=== PATIENT | male | born 1965 | race Hispanic/Latino ===

== ENCOUNTER 2018-06-27 18:21 | Emergency (ER) | payer OTHER ==
[2018-06-27 19:10] LABS: APPEARANCE,URINE Clear (CLEAR); BILIRUBIN,URINE Negative (NEGATIVE); COLOR,URINE Yellow (YELLOW); GLUCOSE, URINE (UA) Negative (NEGATIVE); KETONES,URINE Negative (NEGATIVE); LEUKOCYTE ESTERASE ,URINE Negative (NEGATIVE); NITRATE,URINE Negative (NEGATIVE); OCCULT BLOOD,URINE Negative (NEGATIVE); PH,URINE 6.5 (5.0-8.0); PROTEIN,URINE Negative (NEGATIVE); UROBILINOGEN,URINE 0.2 mg/dL (0.2-1.0)
[2018-06-27 19:26] LABS: BASOPHILS % (AUTO) 0.8 % (0.0-5.0); EOSINOPHILS % (AUTO) 4.5 % (0.0-8.0); HEMATOCRIT 41.3 % (42-54); LYMPHOCYTES % (AUTO) 26.1 % (21.0-51.0); MEAN CORPUSCULAR HEMOGLOBIN 31.7 pg (27.0-33.0); MEAN CORPUSCULAR HGB CONC 33.4 g/dL (32.0-36.0); MEAN CORPUSCULAR VOLUME 94.9 fL (79-99); MONOCYTES % (AUTO) 7.3 % (3.0-13.0); NEUTROPHILS % (AUTO) 61.3 % (40.0-77.0); PLATELET COUNT (AUTO) 327 K/uL (130-400); RED BLOOD CELL COUNT(AUTO) 4.36 MIL/uL (4.50-6.20); RED CELL DISTRIBUTION WIDTH 13.4 % (11.0-15.5); WHITE BLOOD COUNT (AUTO) 8.6 K/uL (4.8-10.8)
[2018-06-27 19:36] LABS: CREATININE 1.1 mg/dL (0.5-1.5)
[2018-06-27 19:38] LABS: INR 0.98 (0.85-1.15); PARTIAL THROMBOPLASTIN TIME 27.4 SEC (26.3-35.5); PROTHROMBIN TIME 10.3 SEC (9.6-11.6)
[2018-06-27 19:49] LABS: ALBUMIN 3.7 g/dL (3.5-5.0); BILIRUBIN,TOTAL 0.3 mg/dL (0.2-1.0); TOTAL PROTEIN, SERUM 7.7 g/dL (6.0-8.3)
[2018-06-27] MEDS ORDERED: TRAMADOL HCL 50 MG TABLET ONE (20:32)
== END 2018-06-27 22:29 | disposition home or self-care (01) ==
LOC: EDH 18:21
DX: R10.9 Unspecified abdominal pain (principal); R07.1 Chest pain on breathing; W11.XXXA Fall on and from ladder, initial encounter; Y93.89 Activity, other specified; Y92.89 Other specified places as the place of occurrence of the external cause; Y99.8 Other external cause status
CPT/HCPCS: 36415; 71101; 74177; 80053; 81003; 82150; 82550; 83690; 84484; 85025; 85610; 85730; 93005

== ENCOUNTER 2019-02-05 04:17 | Emergency (ER) | payer OTHER ==
[2019-02-05 04:55] LABS: BASOPHILS % (AUTO) 0.5 % (0.0-5.0); EOSINOPHILS % (AUTO) 4.2 % (0.0-8.0); HEMATOCRIT 41.3 % (42-54); LYMPHOCYTES % (AUTO) 21.5 % (21.0-51.0); MEAN CORPUSCULAR HEMOGLOBIN 32.4 pg (27.0-33.0); MEAN CORPUSCULAR HGB CONC 33.7 g/dL (32.0-36.0); MEAN CORPUSCULAR VOLUME 96.3 fL (79-99); MONOCYTES % (AUTO) 6.7 % (3.0-13.0); NEUTROPHILS % (AUTO) 67.1 % (40.0-77.0); PLATELET COUNT (AUTO) 289 K/uL (130-400); RED BLOOD CELL COUNT(AUTO) 4.28 MIL/uL (4.50-6.20); RED CELL DISTRIBUTION WIDTH 13.4 % (11.0-15.5); WHITE BLOOD COUNT (AUTO) 8.8 K/uL (4.8-10.8)
[2019-02-05 05:03] LABS: CREATININE 1.3 mg/dL (0.5-1.5); POTASSIUM 4.1 mmol/L (3.5-5.1)
[2019-02-05 05:08] LABS: ALBUMIN 3.8 g/dL (3.5-5.0); BILIRUBIN,TOTAL 0.3 mg/dL (0.2-1.0); INR 0.98 (0.85-1.15); PARTIAL THROMBOPLASTIN TIME 26.1 SEC (26.3-35.5); PROTHROMBIN TIME 10.3 SEC (9.6-11.6); TOTAL PROTEIN, SERUM 7.8 g/dL (6.0-8.3)
== END 2019-02-05 06:28 ==
LOC: EDH 04:17
DX: S02.2XXA Fracture of nasal bones, initial encounter for closed fracture (principal); S62.336A Displaced fracture of neck of fifth metacarpal bone, right hand, initial encounter for closed fracture; S01.21XA Laceration without foreign body of nose, initial encounter; S61.411A Laceration without foreign body of right hand, initial encounter; M79.602 Pain in left arm; Z72.0 Tobacco use; R79.1 Abnormal coagulation profile; Y04.2XXA Assault by strike against or bumped into by another person, initial encounter; Y93.89 Activity, other specified; Y92.098 Other place in other non-institutional residence as the place of occurrence of the external cause; Y99.8 Other external cause status
CPT/HCPCS: 29125; 36415; 70450; 70486; 73130; 80053; 85025; 85610; 85730

== ENCOUNTER 2020-04-24 15:11 | Inpatient (IN) | payer SELFPAY ==
[~2020-04-24] VITALS: Ht 160 cm; Wt 31.1 kg
[2020-04-24] MEDS ORDERED: MORPHINE SULFATE 4 MG/1ML SYG ONE (15:30)
[2020-04-24] MEDS ORDERED: ONDANSETRON HCL 4 MG/2 ML VIAL ONE ×2 (15:30→23:09)
[2020-04-24 15:38] LABS: BASOPHILS % (AUTO) 0.3 % (0.0-5.0); EOSINOPHILS % (AUTO) 0.4 % (0.0-8.0); HEMATOCRIT 43.7 % (42-54); LYMPHOCYTES % (AUTO) 11.3 % (21.0-51.0); MEAN CORPUSCULAR HEMOGLOBIN 31.9 pg (27.0-33.0); MEAN CORPUSCULAR VOLUME 96.7 fL (79-99); MONOCYTES % (AUTO) 4.3 % (3.0-13.0); NEUTROPHILS % (AUTO) 83.3 % (40.0-77.0); PLATELET COUNT (AUTO) 376 K/uL (130-400); RED BLOOD CELL COUNT(AUTO) 4.52 MIL/uL (4.50-6.20); RED CELL DISTRIBUTION WIDTH 12.6 % (11.0-15.5)
[2020-04-24 15:49] LABS: CREATININE 1.3 mg/dL (0.5-1.5); POTASSIUM 4.1 mmol/L (3.5-5.1); PROTHROMBIN TIME 10.8 SEC (9.6-11.6)
[2020-04-24 15:53] LABS: ALBUMIN 3.2 g/dL (3.5-5.0); BILIRUBIN,TOTAL 0.2 mg/dL (0.2-1.0); TOTAL PROTEIN, SERUM 7.3 g/dL (6.0-8.3)
[2020-04-24 16:01] LABS: PARTIAL THROMBOPLASTIN TIME 25.6 SEC (26.3-35.5)
[2020-04-24] MEDS ORDERED: METRONIDAZOLE 500MG/100ML BAG 100 ML ONE (16:13)
[2020-04-24] MEDS ORDERED: HYDROMORPHONE HCL 0.5 MG/0.5 ML ML ONE (16:19)
[2020-04-24] MEDS ORDERED: ZOSYN 3.375GM+NS 50ML 50 ML IV ONE (16:34)
[2020-04-24] MEDS ORDERED: HYDROMORPHONE 1 MG/1 ML AMP ONE ×2 (16:55→17:39)
[2020-04-24] MEDS ORDERED: SODIUM CHLORIDE 0.9% 1000ML 1,000 ML IV ONE (17:09)
[2020-04-24] MEDS ORDERED: VANCOMYCIN PROTOCOL PER PHARMACY IV SCH (17:30)
[2020-04-24] MEDS ORDERED: PROPOFOL 10 MG/ML 20ML VIAL IV ONE (17:53)
[2020-04-24] MEDS ORDERED: MIDAZOLAM HCL 1 MG/ML 2ML VIAL ONE (18:07)
[2020-04-24] MEDS ORDERED: FENTANYL CITRATE PF 50 MCG/1 ML 2ML VIAL ONE ×2 (18:07→22:54)
[2020-04-24] MEDS ORDERED: VANCOMYCIN 1GM+NS 250ML 250 ML IV ONE (19:24)
[2020-04-24] MEDS ORDERED: MORPHINE SULFATE 2 MG/ML 1ML SYG ONE (20:57)
[2020-04-24] MEDS: VANCOMYCIN 1GM+NS 250ML 250 ML IV SCH (21:00)
[2020-04-24] MEDS: FAMOTIDINE/PF 20 MG/2 ML VIAL IV SCH (21:00)
[2020-04-24] MEDS: ZOSYN 3.375GM+NS 50ML 50 ML IV SCH (21:00)
[2020-04-24] MEDS: METRONIDAZOLE 500MG/100ML BAG 100 ML IVPB SCH ×2 (22:00→22:52)
[2020-04-24] MEDS ORDERED: CEFAZOLIN SODIUM 1 GM VIAL ONE (22:57)
[2020-04-24] MEDS ORDERED: PHENYLEPHRINE HCL 10 MG/ML 1ML VIAL IV ONE (23:29)
[2020-04-24] MEDS ORDERED: MEPERIDINE-PF 25 MG/ML SYG ONE (23:48)
[2020-04-24] MEDS ORDERED: KETOROLAC TROMETHAMINE 30MG/ML ONE (23:57)
[2020-04-25] VITALS (24 sets, daily range): BP systolic 97–120; BP diastolic 43–84
--- NOTE | 2020-04-25 00:25 | NUR ---
PT HERE FROM PACU
[2020-04-25] MEDS: LACTATED RINGERS 1000ML 1,000 ML IV SCH ×4 (00:53→14:12)
--- NOTE | 2020-04-25 01:04 | NUR ---
CALLED DR OBREIN PHYSICIAN ON-CALL, GAVE UPDATE ON PT STATUS, LAST SET OF VITALS, IVF, AND PAIN REGIMEN, PER PHYSICIAN NO NEW ORDERS
[2020-04-25 03:23] LABS: BASOPHILS % (AUTO) 0.6 % (0.0-5.0); EOSINOPHILS % (AUTO) 0.3 % (0.0-8.0); HEMATOCRIT 38.4 % (42-54); LYMPHOCYTES % (AUTO) 5.3 % (21.0-51.0); MEAN CORPUSCULAR HGB CONC 33.3 g/dL (32.0-36.0); MONOCYTES % (AUTO) 2.1 % (3.0-13.0); NEUTROPHILS % (AUTO) 91.5 % (40.0-77.0); PLATELET COUNT (AUTO) 302 K/uL (130-400); RED CELL DISTRIBUTION WIDTH 12.8 % (11.0-15.5); WHITE BLOOD COUNT (AUTO) 9.9 K/uL (4.8-10.8)
[2020-04-25 03:36] LABS: ALBUMIN 2.3 g/dL (3.5-5.0); BILIRUBIN,TOTAL 0.4 mg/dL (0.2-1.0); CREATININE 1.2 mg/dL (0.5-1.5); CRP QUANTITATIVE 96.6 mg/L (0.00-9.0); POTASSIUM 4.3 mmol/L (3.5-5.1); TOTAL PROTEIN, SERUM 5.5 g/dL (6.0-8.3)
[2020-04-25] MEDS: METRONIDAZOLE 500MG/100ML BAG 100 ML IVPB SCH ×3 (06:13→19:51)
[2020-04-25] MEDS: ZOSYN 3.375GM+NS 50ML 50 ML IV SCH ×3 (06:13→19:50)
[2020-04-25] MEDS: FAMOTIDINE/PF 20 MG/2 ML VIAL IV SCH ×2 (10:06→19:50)
[2020-04-25] MEDS: MORPHINE SULFATE 2 MG/ML 1ML SYG IV PRN ×4 (10:07→23:44)
[2020-04-25] MEDS: VANCOMYCIN 1GM+NS 250ML 250 ML IV SCH ×2 (10:07→19:51)
--- NOTE | 2020-04-25 11:47 | NUR ---
DC PLAN VISITED WITH PATIENT. PATIENT LIVES WITH PARENTS. INDEPENDENT ABLE TO PERFORM ADL'S. PATIENT HAS NO SERVICES OR DME'S. FEELS SAFE TO RETURN HOME. Addendum: 04/25/20 at 1148 by CHARY SCHULTZ RN CM Amended: Links added.
--- NOTE | 2020-04-25 15:30 | NUR ---
TRANSFER REPORT Report phoned to RORY Brito, nurse receiving pt in room 431. Pt aware of transfer.
--- NOTE | 2020-04-25 15:45 | NUR ---
TRANSFER Transferred by bed to room 431.
[2020-04-25] MEDS ORDERED: POTASSIUM CHLORIDE 20MEQ/100ML 100 ML IV PRN ×2 (18:30)
[2020-04-25] MEDS: HEPARIN SODIUM 5000UNIT/ML 1ML VIAL SQ SCH (19:37)
--- NOTE | 2020-04-25 23:22 | NUR ---
i gave patient his morphine 2mg at 2322, however his iv on the right forearm was infiltrated. patient still verbalizes severe pain on his abdomen. i placed another iv catheter and will give morphine on that catheter.
[2020-04-26] VITALS (7 sets, daily range): BP systolic 105–165; BP diastolic 67–91
--- NOTE | 2020-04-26 02:14 | NUR ---
paged steve candelaria for patient's fever and abdominal pain. pending call back
--- NOTE | 2020-04-26 02:21 | NUR ---
steve candelaria ordered tynelol for fever and morphine 4 mg for severe pain
[2020-04-26] MEDS ORDERED: ACETAMINOPHEN 325 MG TAB ONE (02:22)
[2020-04-26] MEDS: LACTATED RINGERS 1000ML 1,000 ML IV SCH ×2 (02:27→19:46)
[2020-04-26] MEDS ORDERED: ACETAMINOPHEN 325 MG TAB PO PRN (02:30)
[2020-04-26] MEDS: ZOSYN 3.375GM+NS 50ML 50 ML IV SCH ×3 (03:28→19:43)
[2020-04-26] MEDS: METRONIDAZOLE 500MG/100ML BAG 100 ML IVPB SCH ×3 (05:20→22:03)
[2020-04-26] MEDS: HEPARIN SODIUM 5000UNIT/ML 1ML VIAL SQ SCH (05:20)
--- NOTE | 2020-04-26 06:02 | NUR ---
colostomy output is 10 ml of sanguineous fluid
[2020-04-26 06:24] LABS: BASOPHILS % (AUTO) 0.2 % (0.0-5.0); EOSINOPHILS % (AUTO) 0.1 % (0.0-8.0); HEMATOCRIT 34.5 % (42-54); LYMPHOCYTES % (AUTO) 5.6 % (21.0-51.0); MEAN CORPUSCULAR HGB CONC 33.6 g/dL (32.0-36.0); MONOCYTES % (AUTO) 2.1 % (3.0-13.0); NEUTROPHILS % (AUTO) 90.7 % (40.0-77.0); PLATELET COUNT (AUTO) 289 K/uL (130-400); RED BLOOD CELL COUNT(AUTO) 3.63 MIL/uL (4.50-6.20); RED CELL DISTRIBUTION WIDTH 12.9 % (11.0-15.5); WHITE BLOOD COUNT (AUTO) 15.7 K/uL (4.8-10.8)
[2020-04-26 06:36] LABS: BILIRUBIN,TOTAL 0.3 mg/dL (0.2-1.0); POTASSIUM 3.7 mmol/L (3.5-5.1); TOTAL PROTEIN, SERUM 5.9 g/dL (6.0-8.3)
[2020-04-26] MEDS: POTASSIUM CHLORIDE 10% ELIXIR 20 MEQ/15 ML UDCUP PO PRN (06:41)
[2020-04-26] MEDS: FAMOTIDINE/PF 20 MG/2 ML VIAL IV SCH ×2 (09:16→19:43)
[2020-04-26] MEDS: MORPHINE SULFATE 2 MG/ML 1ML SYG IV PRN (09:16)
[2020-04-26] MEDS: VANCOMYCIN 1GM+NS 250ML 250 ML IV SCH (09:16)
[2020-04-26] MEDS: FLUCONAZOLE 200 MG/NS 100 ML 100 ML IV SCH (12:15)
[2020-04-26] MEDS: MORPHINE SULFATE 4 MG/1ML SYG IV PRN ×2 (12:36→19:43)
[2020-04-26] MEDS: ONDANSETRON HCL 4 MG/2 ML VIAL IV PRN (20:02)
[2020-04-27 03:57] VITALS: BP 117/71
[2020-04-27] MEDS: METRONIDAZOLE 500MG/100ML BAG 100 ML IVPB SCH ×3 (05:26→20:35)
[2020-04-27] MEDS: ZOSYN 3.375GM+NS 50ML 50 ML IV SCH ×3 (05:26→20:34)
[2020-04-27] MEDS: HEPARIN SODIUM 5000UNIT/ML 1ML VIAL SQ SCH ×2 (05:29→17:33)
[2020-04-27] MEDS: LACTATED RINGERS 1000ML 1,000 ML IV SCH ×2 (05:46→13:44)
[2020-04-27] MEDS: MORPHINE SULFATE 2 MG/ML 1ML SYG IV PRN (05:47)
[2020-04-27 05:59] LABS: BASOPHILS % (AUTO) 0.2 % (0.0-5.0); EOSINOPHILS % (AUTO) 1.1 % (0.0-8.0); HEMATOCRIT 35.3 % (42-54); LYMPHOCYTES % (AUTO) 7.4 % (21.0-51.0); MEAN CORPUSCULAR HEMOGLOBIN 31.3 pg (27.0-33.0); MEAN CORPUSCULAR HGB CONC 32.9 g/dL (32.0-36.0); MEAN CORPUSCULAR VOLUME 95.1 fL (79-99); MONOCYTES % (AUTO) 2.6 % (3.0-13.0); NEUTROPHILS % (AUTO) 87.8 % (40.0-77.0); PLATELET COUNT (AUTO) 321 K/uL (130-400); RED BLOOD CELL COUNT(AUTO) 3.71 MIL/uL (4.50-6.20); RED CELL DISTRIBUTION WIDTH 12.9 % (11.0-15.5); WHITE BLOOD COUNT (AUTO) 15.3 K/uL (4.8-10.8)
[2020-04-27 06:14] LABS: BILIRUBIN,TOTAL 0.4 mg/dL (0.2-1.0); CREATININE 1.1 mg/dL (0.5-1.5); POTASSIUM 3.9 mmol/L (3.5-5.1); TOTAL PROTEIN, SERUM 6.1 g/dL (6.0-8.3)
[2020-04-27 08:53] VITALS: BP 115/73
[2020-04-27] MEDS: FAMOTIDINE/PF 20 MG/2 ML VIAL IV SCH ×2 (10:08→20:35)
[2020-04-27] MEDS: MORPHINE SULFATE 4 MG/1ML SYG IV PRN ×3 (10:59→20:36)
[2020-04-27 12:00] VITALS: BP 119/72
[2020-04-27] MEDS: FLUCONAZOLE 200 MG/NS 100 ML 100 ML IV SCH (12:22)
[2020-04-27 16:00] VITALS: BP 136/87
[2020-04-27 20:00] VITALS: BP 137/86
[2020-04-27] MEDS: ONDANSETRON HCL 4 MG/2 ML VIAL IV PRN (20:51)
[2020-04-28] VITALS: BP 121/66
[2020-04-28] MEDS: MORPHINE SULFATE 4 MG/1ML SYG IV PRN ×3 (00:50→23:33)
[2020-04-28] MEDS: LACTATED RINGERS 1000ML 1,000 ML IV SCH ×2 (01:32→11:15)
[2020-04-28 04:00] VITALS: BP 141/74
[2020-04-28] MEDS: ZOSYN 3.375GM+NS 50ML 50 ML IV SCH ×3 (04:44→20:34)
[2020-04-28 05:56] LABS: BASOPHILS % (AUTO) 0.2 % (0.0-5.0); EOSINOPHILS % (AUTO) 3.2 % (0.0-8.0); HEMATOCRIT 34.8 % (42-54); LYMPHOCYTES % (AUTO) 12.9 % (21.0-51.0); MEAN CORPUSCULAR HEMOGLOBIN 31.6 pg (27.0-33.0); MEAN CORPUSCULAR HGB CONC 33.9 g/dL (32.0-36.0); MEAN CORPUSCULAR VOLUME 93.3 fL (79-99); MONOCYTES % (AUTO) 7.8 % (3.0-13.0); NEUTROPHILS % (AUTO) 75.4 % (40.0-77.0); PLATELET COUNT (AUTO) 356 K/uL (130-400); RED BLOOD CELL COUNT(AUTO) 3.73 MIL/uL (4.50-6.20); RED CELL DISTRIBUTION WIDTH 12.6 % (11.0-15.5); WHITE BLOOD COUNT (AUTO) 9.9 K/uL (4.8-10.8)
[2020-04-28] MEDS: METRONIDAZOLE 500MG/100ML BAG 100 ML IVPB SCH ×3 (05:56→20:35)
[2020-04-28] MEDS: HEPARIN SODIUM 5000UNIT/ML 1ML VIAL SQ SCH ×2 (05:58→16:50)
[2020-04-28 06:04] LABS: CREATININE 0.9 mg/dL (0.5-1.5); POTASSIUM 3.4 mmol/L (3.5-5.1)
[2020-04-28 08:00] VITALS: BP 110/70
[2020-04-28] MEDS: FAMOTIDINE/PF 20 MG/2 ML VIAL IV SCH ×2 (09:24→20:35)
[2020-04-28 11:00] VITALS: BP 101/70
[2020-04-28] MEDS: FLUCONAZOLE 200 MG/NS 100 ML 100 ML IV SCH (13:40)
[2020-04-28] MEDS ORDERED: ACETAMINOPHEN-CODEINE 300/30MG TAB PO PRN (14:45)
[2020-04-28 16:00] VITALS: BP 106/56
[2020-04-28] MEDS: POTASSIUM CHLORIDE 10% ELIXIR 20 MEQ/15 ML UDCUP PO PRN (16:51)
[2020-04-28 20:00] VITALS: BP 144/87
[2020-04-29] VITALS: BP 122/82
[2020-04-29 04:00] VITALS: BP 99/58
[2020-04-29] MEDS: ZOSYN 3.375GM+NS 50ML 50 ML IV SCH ×3 (04:50→20:06)
[2020-04-29] MEDS: METRONIDAZOLE 500MG/100ML BAG 100 ML IVPB SCH ×3 (04:53→22:12)
[2020-04-29] MEDS: HEPARIN SODIUM 5000UNIT/ML 1ML VIAL SQ SCH ×2 (04:56→18:34)
[2020-04-29] MEDS: MORPHINE SULFATE 4 MG/1ML SYG IV PRN ×2 (04:57→16:41)
[2020-04-29 06:45] LABS: BASOPHILS % (AUTO) 0.4 % (0.0-5.0); EOSINOPHILS % (AUTO) 4.3 % (0.0-8.0); HEMATOCRIT 35.3 % (42-54); LYMPHOCYTES % (AUTO) 13.5 % (21.0-51.0); MEAN CORPUSCULAR HEMOGLOBIN 31.1 pg (27.0-33.0); MEAN CORPUSCULAR HGB CONC 33.4 g/dL (32.0-36.0); MEAN CORPUSCULAR VOLUME 92.9 fL (79-99); MONOCYTES % (AUTO) 10.1 % (3.0-13.0); NEUTROPHILS % (AUTO) 70.6 % (40.0-77.0); PLATELET COUNT (AUTO) 372 K/uL (130-400); RED CELL DISTRIBUTION WIDTH 12.5 % (11.0-15.5); WHITE BLOOD COUNT (AUTO) 10.5 K/uL (4.8-10.8)
[2020-04-29 06:53] LABS: CREATININE 0.9 mg/dL (0.5-1.5); MAGNESIUM 1.8 mg/dL (1.80-2.40); POTASSIUM 3.4 mmol/L (3.5-5.1)
[2020-04-29 08:00] VITALS: BP 100/61
[2020-04-29] MEDS: FAMOTIDINE/PF 20 MG/2 ML VIAL IV SCH ×2 (10:24→20:00)
[2020-04-29] MEDS: FLUCONAZOLE 200 MG/NS 100 ML 100 ML IV SCH (10:29)
--- NOTE | 2020-04-29 10:35 | NUR ---
dr plaza here to see patient; i've removed abdominal dressing and he has examined inc. line which is well approx. with la in place, no redness or drainage noted; pt mentioned he's had a colostomy before and and open inc on his abdoman that he had to do packing dressing changes to. dr Plaza said from his standpoint pt ok to be d/c home when ok with medical md. i have placed a clean dry gauze dressing on the patient. pt hannah. proc. well.
[2020-04-29] MEDS: POTASSIUM CHLORIDE 20 MEQ ERTAB PO PRN ×2 (10:49→16:41)
[2020-04-29 12:00] VITALS: BP 131/76
--- NOTE | 2020-04-29 14:07 | NUR ---
CM Note: [facility] ostomy bag and supplies pending approval and delivery CM spoke to pt and spouse, agreeable for ostomy bag and supplies to be arranged, LINO signed for [facility]. Spouse and pt made aware, pt is selfpay, CM unsure if [facility] will approve bag and supplies, if unable, pt/spouse will have to pay privately. Spouse and pt verbalized understanding. CM faxed script and clinicals to [facility], confirmation received. Also sent via secure email to Sabi See, confirmation received. Spoke to Sabi, will coordinate w/pt and spouse regarding possible [facility] vs private pay. Pt pending approval and delivery at home for ostomy bag and supplies. Primary nurse Mikayla VALADEZ aware to give pt 4-5bags prior to DC to start pt. CM to continue to follow up.
--- NOTE | 2020-04-29 14:20 | NUR ---
RDSCREEN - LOW BMI Pt Screened 04/29/20. Possible inaccurate weight entered in EMR. Spoke with Pt via phone due to contact isolation precaution. Pt reports UBW of 150 lbs and when asked about recent weight loss Pt reports no significant weight loss. Pt discharge postponed. Pt reported good appetite and intake. Reports sharp pain with gas but passes within 2-3 seconds. No other GI distress, no food allergies as per Pt. Pt is s/p Melchor's procedure. No additional nutrition concerns. RD to continue to monitor. Please notify as additional nutrition concerns arise. Thank you.
[2020-04-29 16:00] VITALS: BP 123/58
--- NOTE | 2020-04-29 16:29 | NUR ---
I SPOKE TO DR Jeannette HANEY ON THE PHONE IN REGARDS TO D/C ORDERS, I TOLD HIM PT HAS NOT GOTTEN FINAL APPROVAL FOR [employer] BUT THE REQUEST HAS BEEN SENT AND MISTY SOLIS STATED SHE WOULD FOLLOW UP ON IT TOMORROW IF PT WAS D/C TODAY; HE STATED BETTER TO KEEP THE PT TILL TOMORROW TILL FINAL APPROVAL RECEIVED. PT INFORMED.
[2020-04-29 20:39] VITALS: BP 128/78
[2020-04-30] VITALS: BP 110/65
[2020-04-30] MEDS: MORPHINE SULFATE 4 MG/1ML SYG IV PRN ×2 (01:18→06:08)
[2020-04-30 04:41] VITALS: BP 95/59
[2020-04-30] MEDS: METRONIDAZOLE 500MG/100ML BAG 100 ML IVPB SCH (05:40)
[2020-04-30] MEDS: ZOSYN 3.375GM+NS 50ML 50 ML IV SCH (05:40)
[2020-04-30] MEDS: HEPARIN SODIUM 5000UNIT/ML 1ML VIAL SQ SCH ×2 (05:47→18:07)
[2020-04-30 06:22] LABS: APPEARANCE,URINE CLEAR (CLEAR); BILIRUBIN,URINE NEGATIVE (NEGATIVE); COLOR,URINE YELLOW (YELLOW); GLUCOSE, URINE (UA) NEGATIVE (NEGATIVE); KETONES,URINE NEGATIVE (NEGATIVE); LEUKOCYTE ESTERASE ,URINE NEGATIVE (NEGATIVE); NITRATE,URINE NEGATIVE (NEGATIVE); OCCULT BLOOD,URINE TRACE-INTACT (NEGATIVE); PROTEIN,URINE NEGATIVE (NEGATIVE); UROBILINOGEN,URINE 0.2 mg/dL (0.2-1.0)
[2020-04-30 06:52] LABS: BACTERIA,URINE Rare /HPF (None Seen); RBC,URINE 0-1 /HPF (0-1); SQUAMOUS EPITHELIAL CELL,UR Rare /HPF (0-2); WBC,URINE 0-1 /HPF (0-1)
[2020-04-30 09:16] VITALS: BP 118/76
[2020-04-30] MEDS: FAMOTIDINE/PF 20 MG/2 ML VIAL IV SCH (09:43)
[2020-04-30] MEDS ORDERED: CEFUROXIME AXETIL 250 MG TABLET PO SCH (10:00)
[2020-04-30 12:36] VITALS: BP 112/66
[2020-04-30] MEDS: METRONIDAZOLE 500 MG TABLET PO SCH ×2 (12:51→18:06)
[2020-04-30 18:13] VITALS: BP 108/64
--- NOTE | 2020-05-02 10:14 | NUR ---
Transitional Care - Post Discharge Note NO ANSWER. Dialed patient to spouse's phone number, as number listed for patient not a working number. Left a message requesting a callback. Addendum: 05/02/20 at 1015 by JAY WYNNE Amended: Links added.
== END 2020-04-30 19:42 | disposition home or self-care (01) | DRG 853 ==
LOC: EDH 15:11 → EDHIP 15:12 → 2CH 04-25 00:25 → 4AH 04-25 15:55
PROVIDERS: ADMIT Family Medicine; ATTEND Family Medicine
PROC: 0DBN0ZZ Excision of Sigmoid Colon, Open Approach (ICD-10-PCS; principal; 2020-04-25)
PROC: 0D1N0Z4 Bypass Sigmoid Colon to Cutaneous, Open Approach (ICD-10-PCS; 2020-04-25)
DX: A41.9 Sepsis, unspecified organism (principal); K65.0 Generalized (acute) peritonitis; K57.20 Diverticulitis of large intestine with perforation and abscess without bleeding; Z21 Asymptomatic human immunodeficiency virus [HIV] infection status; K21.9 Gastro-esophageal reflux disease without esophagitis; B96.20 Unspecified Escherichia coli [E. coli] as the cause of diseases classified elsewhere
CPT/HCPCS: 36415; 74176; 80048; 80053; 80202; 81001; 82150; 82948; 83690; 83735; 84132; 84145; 84484; 85025; 85610; 85730; 86140; 87040; 87070; 87076; 87077; 87186; 87205; 93005; 97039; A4344; G0378; J0690; J1170; J1450; J1644; J1885; J2175; J2250; J2270; J2370; J2405; J2543; J2704; J3010; J3370; J3490; J7030; J7120

== ENCOUNTER 2021-02-12 15:39 | Emergency (ER) | payer OTHER ==
[~2021-02-12] VITALS: Ht 160 cm; Wt 65.8 kg
[2021-02-12] MEDS ORDERED: ONDANSETRON 4MG INJ IVP ONE (16:00)
[2021-02-12] MEDS ORDERED: 0.9%NACL 1000ML 1,000 ML IV SCH (16:00)
[2021-02-12] MEDS ORDERED: ONDANSETRON 4MG INJ ONE (16:01)
[2021-02-12 16:11] LABS: BASOPHILS % (AUTO) 0.4 % (0.0-5.0); EOSINOPHILS % (AUTO) 2.4 % (0.0-8.0); LYMPHOCYTES % (AUTO) 31.7 % (21.0-51.0); MEAN CORPUSCULAR HEMOGLOBIN 31.4 pg (27.0-33.0); MEAN CORPUSCULAR HGB CONC 34.5 g/dL (32.0-36.0); MEAN CORPUSCULAR VOLUME 91.1 fL (79-99); MONOCYTES % (AUTO) 8.6 % (3.0-13.0); NEUTROPHILS % (AUTO) 56.6 % (40.0-77.0); PLATELET COUNT (AUTO) 317 K/uL (130-400); RED BLOOD CELL COUNT(AUTO) 4.17 MIL/uL (4.50-6.20); RED CELL DISTRIBUTION WIDTH 13.2 % (11.0-15.5); WHITE BLOOD COUNT (AUTO) 7.8 K/uL (4.8-10.8)
[2021-02-12 16:14] VITALS: BP 99/70
[2021-02-12 16:26] LABS: POTASSIUM 3.8 mmol/L (3.5-5.1)
[2021-02-12 17:05] LABS: ALBUMIN 3.4 g/dL (3.5-5.0); BILIRUBIN,TOTAL 0.4 mg/dL (0.2-1.0); CREATININE 0.9 mg/dL (0.5-1.5); TOTAL PROTEIN, SERUM 7.3 g/dL (6.0-8.3)
[2021-02-12 17:08] LABS: APPEARANCE,URINE Clear (CLEAR); BILIRUBIN,URINE Negative (NEGATIVE); COLOR,URINE Yellow (YELLOW); GLUCOSE, URINE (UA) Negative (NEGATIVE); KETONES,URINE Negative (NEGATIVE); LEUKOCYTE ESTERASE ,URINE Negative (NEGATIVE); NITRATE,URINE Negative (NEGATIVE); OCCULT BLOOD,URINE Negative (NEGATIVE); PROTEIN,URINE Negative (NEGATIVE)
[2021-02-12] MEDS ORDERED: KETOROLAC 60 MG VIAL (30MG/ML) ONE (17:41)
[2021-02-12] MEDS ORDERED: KETOROLAC 60 MG VIAL (30MG/ML) IM ONE (18:30)
== END 2021-02-12 18:19 | disposition home or self-care (01) ==
LOC: EDH 15:39
DX: R10.31 Right lower quadrant pain (principal); R11.2 Nausea with vomiting, unspecified; F17.200 Nicotine dependence, unspecified, uncomplicated; Z93.3 Colostomy status
CPT/HCPCS: 36415; 74176; 80053; 81003; 82150; 83690; 85025; 96361; 96372; 96374; 99285; J1885; J2405; J7030

== ENCOUNTER 2021-12-20 15:46 | Emergency (ER) | payer OTHER ==
[~2021-12-20] VITALS: Ht 160 cm; Wt 65.8 kg
[2021-12-20] MEDS ORDERED: ACETAMINOPHEN 500 MG TABLET ONE (16:35)
[2021-12-20] MEDS ORDERED: ACET-2247 PO (16:36)
[2021-12-20 16:48] VITALS: BP 123/78
[2021-12-20] MEDS ORDERED: ACETAMINOPHEN 500 MG TABLET PO ONE (17:00)
== END 2021-12-20 16:50 | disposition home or self-care (01) ==
LOC: EDH 15:46
DX: S92.515A Nondisplaced fracture of proximal phalanx of left lesser toe(s), initial encounter for closed fracture (principal); E11.9 Type 2 diabetes mellitus without complications; I10 Essential (primary) hypertension; F17.200 Nicotine dependence, unspecified, uncomplicated; X58.XXXA Exposure to other specified factors, initial encounter; Y93.89 Activity, other specified; Y92.89 Other specified places as the place of occurrence of the external cause; Y99.8 Other external cause status
CPT/HCPCS: 73630

== ENCOUNTER 2024-03-20 15:46 | Emergency (ER) | payer BC ==
[~2024-03-20] VITALS: Ht 162.6 cm; Wt 65.8 kg
[~2024-03-20 15:46] MED LIST: ACET-2247 PO; BICT1TAB PO
[2024-03-20 16:02] VITALS: BP 107/72; PULSE 62; RESP 16; TEMP 98.6; O2SAT 98
[2024-03-20 16:12] LABS: BASOPHILS # (AUTO) 0.05 K/uL (0.00-0.20); BASOPHILS % (AUTO) 0.7 % (0.0-5.0); EOSINOPHILS % (AUTO) 1.4 % (0.0-8.0); HEMATOCRIT 42.6 % (42-54); IMMATURE GRANULOCYTE ABSOLUTE 0.01 K/uL (0-1); LYMPHOCYTES # (AUTO) 1.7 K/uL (1.0-4.8); LYMPHOCYTES % (AUTO) 23.8 % (21.0-51.0); MEAN CORPUSCULAR HEMOGLOBIN 30.8 pg (27.0-33.0); MEAN CORPUSCULAR HGB CONC 32.9 g/dL (32.0-36.0); MEAN CORPUSCULAR VOLUME 93.6 fL (79-99); MONOCYTES # (AUTO) 0.4 K/uL (0.1-1.0); NEUTROPHILS # (AUTO) 4.9 K/uL (1.8-7.7); PLATELET COUNT (AUTO) 318 K/uL (130-400); RED BLOOD CELL COUNT(AUTO) 4.55 MIL/uL (4.50-6.20); RED CELL DISTRIBUTION WIDTH 12.7 % (11.0-15.5); WHITE BLOOD COUNT (AUTO) 7.1 K/uL (4.8-10.8)
[2024-03-20 16:32] LABS: B-TYPE NATRIURETIC PEPTIDE 16 pg/mL (0-100); CREATININE 1.1 mg/dL (0.5-1.3)
[2024-03-20] MEDS ORDERED: ASPI-1197 PO (17:46)
== END 2024-03-20 18:00 ==
LOC: EDH 15:46
DX: R07.89 Other chest pain (principal); F41.9 Anxiety disorder, unspecified; F17.200 Nicotine dependence, unspecified, uncomplicated
CPT/HCPCS: 36415; 71045; 80048; 82550; 83880; 84484; 85025; 93005